=== PATIENT | male | born 2005 | race Caucasian/White ===

== ENCOUNTER 2023-08-18 04:36 | Emergency (ER) | payer MEDICAID ==
[~2023-08-18] VITALS: Ht 190.5 cm; Wt 97.4 kg
[2023-08-18 04:43] VITALS: TEMP 98.2
[2023-08-18] MEDS ORDERED: EPIN0.3P3 IM (04:57)
[2023-08-18] MEDS: normal saline 1000ML IV soln IVB STA (05:02)
[2023-08-18] MEDS: epiNEPHrine 1 mg/ml inj SQ ONE (05:04)
[2023-08-18] MEDS: methylPREDNISolone sod succ 125mg/2ml vial IV ONE (05:06)
[2023-08-18] MEDS: diphenhydrAMINE 50 mg/ml inj IV ONE (05:08)
[2023-08-18] MEDS: famotidine/PF 10 mg/ml inj IV ONE (05:10)
[2023-08-18] MEDS: triamcinolone acetonide 40mg/ml inj IM ONE (05:12)
[2023-08-18 09:31] VITALS: BP 116/60; PULSE 80; RESP 18; O2SAT 96
== END 2023-08-18 09:35 | disposition home or self-care (01) ==
LOC: ER 04:37
DX: T78.49XA Other allergy, initial encounter (principal); X58.XXXA Exposure to other specified factors, initial encounter
CPT/HCPCS: 82948; 96361; 96372; 96374; 96375; 99285; J0171; J1200; J2930; J3301; J3490; J7030